=== PATIENT | female | born 1980 | race Native Hawaiian/Other Pacific Islander ===

== ENCOUNTER 2016-10-14 21:46 | Inpatient (IN) | payer BC ==
[2016-10-14] MEDS ORDERED: 0.9 % SODIUM CHLORIDE 1,000 ML BAG IV ONE (21:56)
[2016-10-14] MEDS ORDERED: ONDANSETRON HCL IV 4 MG/2 ML VIAL IV ONE (21:56)
[2016-10-14] MEDS ORDERED: HYDROMORPHONE HCL 1MG/ML **SYRINGE IVP ONE ×2 (22:03→22:25)
--- NOTE | 2016-10-14 22:04 | Emergency Department Record ---
History of Present Illness - General Chief Complaint: Abdominal Pain Stated Complaint: ABDOMINAL PAIN Time Seen by Provider: 10/14/16 21:56 Source: Patient Mode of Arrival: Ambulatory - History of Present Illness Initial Comments: The patient states that she developed LLQ AP around 7:30 p.m. while dropping her girls at a sleepover. When she got home the pain was worsened and also in her amanda-umbilical region. She became nauseated, but has not vomited, the pain increased to 10/10, and she had a non-bloody BM which also was painful. She has a history of diverticulitis in the past as well as a R ovarian cyst. She is currently on her 3rd day of her menses. She takes a BCP dailyl and has not missed any pills recently. MD Complaint: Abdominal pain Onset/Timin -: Hour(s) Location: Periumbilical Radiation: None Migration to: No migration Severity: Severe Consistency: Getting worse Improves With: Nothing Worsens With: Nothing Associated Symptoms: Denies other symptoms - Related Data LMP (females 10-50): Current Home Medications Medication Instructions Recorded Confirmed Last Taken Oral Contraceptive 1 tab PO DAILY 10/14/16 10/14/16 Unknown Allergies Allergy/AdvReac Type Severity Reaction Status Date / Time No Known Drug Allergies Allergy Verified 10/14/16 21:54 Travel Screening - Travel/Exposure Within Last 30 Days Have you traveled within the last 30 days?: No - Travel/Exposure Within Last Year Have you traveled outside the [place] in the last year?: No - Additonal Travel Details Have you been exposed to anyone with a communicable illness?: No - Travel Symptoms Symptom Screening: None Review of Systems Reviewed: No additional complaints except as noted below Constitutional: Reports: As per HPI. Denies: Chills, Fever, Malaise, Night sweats, Weakness, Weight change Eyes: Reports: As per HPI. Denies: Eye discharge, Eye pain, Photophobia, Vision change ENT: Reports: As per HPI. Denies: Congestion, Dental pain, Ear pain, Epistaxis , Hearing loss, Throat pain Respiratory: Reports: As per HPI. Denies: Cough, Dyspnea, Hemoptysis, Stridor, Wheezes Cardiovascular: Reports: As per HPI. Denies: Arrhythmia, Chest pain, Dyspnea on exertion, Edema, Murmurs, Orthopnea, Palpitations, Paroxysmal nocturnal dyspnea, Rheumatic Fever, Syncope Endocrine: Reports: As per HPI. Denies: Fatigue, Heat or cold intolerance, Polydipsia, Polyuria Gastrointestinal: Reports: As per HPI. Denies: Abdominal pain, Constipation, Diarrhea, Hematemesis, Hematochezia, Melena, Nausea, Vomiting Genitourinary: Reports: As per HPI. Denies: Abnormal menses, Discharge, Dyspareunia, Dysuria, Frequency, Hematuria, Incontinence, Retention, Urgency Musculoskeletal: Reports: As per HPI. Denies: Arthralgia, Back pain, Gout, Joint swelling, Myalgia, Neck pain Skin: Reports: As per HPI. Denies: Bruising, Change in color, Change in hair/ nails, Lesions, Pruritus, Rash Neurological: Reports: As per HPI. Denies: Abnormal gait, Confusion, Headache, Numbness, Paresthesias, Seizure, Tingling, Tremors, Vertigo, Weakness Psychiatric: Reports: As per HPI. Denies: Anxiety, Auditory hallucinations, Depression, Homicidal thoughts, Suicidal thoughts, Visual hallucinations Hematological/Lymphatic: Reports: As per HPI. Denies: Anemia, Blood Clots, Easy bleeding, Easy bruising, Swollen glands Past Medical History - SOCIAL HISTORY Smoking Status: Never smoker Alcohol Use: None Drug Use: None - RESPIRATORY Hx Respiratory Disorders: No - CARDIOVASCULAR Hx Cardio Disorders: No - NEURO Hx Neuro Disorders: No - GI Hx GI Disorders: Yes Hx Diverticulitis: Yes - Hx Genitourinary Disorders: Yes Comment:: large cyst rt ovary - ENDOCRINE Hx Endocrine Disorders: No - MUSCULOSKELETAL Hx Musculoskeletal Disorders: No - PSYCH Hx Psych Problems: No - HEMATOLOGY/ONCOLOGY Hx Hematology/Oncology Disorders: No Family Medical History Any Significant Family History?: No Physical Exam - General General Appearance: Alert, Oriented x3, Cooperative, Severe distress (crying) - Head Head exam: Normal inspection - Eye Eye exam: Normal appearance, PERRL Pupils: Normal accommodation - ENT ENT exam: Normal exam, Mucous membranes moist, Normal external ear exam, Normal orophraynx, TM's normal bilaterally Ear exam: Normal external inspection. negative: External canal tenderness Nasal Exam: Normal inspection. negative: Discharge, Sinus tenderness Mouth exam: Normal external inspection, Tongue normal Teeth exam: Normal inspection. negative: Dental caries Throat exam: Normal inspection. negative: Tonsillar erythema, Tonsillar exudate - Neck Neck exam: Normal inspection, Full ROM. negative: Tenderness - Respiratory Respiratory exam: Normal lung sounds bilaterally. negative: Respiratory distress - Cardiovascular Cardiovascular Exam: Regular rate, Normal rhythm, Normal heart sounds - GI/Abdominal GI/Abdominal exam: Soft, Normal bowel sounds, Tenderness (tender over LLQ, and periumbilical region, ). negative: Distended, Rebound, Rigid - Rectal Rectal exam: Deferred - exam: Deferred - Extremities Extremities exam: Normal inspection, Full ROM, Normal capillary refill. negative: Calf tenderness, Pedal edema, Tenderness - Back Back exam: Reports: Normal inspection, Full ROM. Denies: CVA tenderness (R), CVA tenderness (L), Muscle spasm, Rash noted, Tenderness - Neurological Neurological exam: Alert, CN II-XII intact, Normal gait, Oriented X3, Reflexes normal - Psychiatric Psychiatric exam: Normal affect, Normal mood - Skin Skin exam: Dry, Intact, Normal color, Warm Course Vital Signs 10/14/16 21:50 Temperature 98.5 F Pulse Rate [ 88 Pulse Ox Probe] Respiratory 24 Rate Blood Pressure 143/79 [Left Arm] Pulse Ox 100 - Reevaluation(s) Reevaluation #1: Patient continues to dramatically tearfully state her pain is no better. BP is 119/76. Ativan and morphine ordered. All labs normal. 10/14/16 23:05 10/15/16 00:46 Patient is more comfortable after ativan and morphine. 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 She is taking folate to treat it and is avoiding smoking. Reevaluation #2: Discussed pros and cons of admission versus going home. Patient states that she is concerned she will not have pain control as this episode is extremely painful compared to her episode 09-20-16. She prefers to stay in the hospital for pain control and then be discharged. She is 5/10 after dilaudid and morphine and ativan. 10/15/16 01:22 Medical Decision Making - Data Complexity MDM Data: Labs Ordered and/or Reviewed, X-Ray Ordered and/or Reviewed (Contrast CT Abd/Pelvis: Fat stranding in the bilateral paracolic gutters. Sigmoid and descending colonic diverticuli. In the distal descending colon there is wall thickening with adjacent fat stranding consistent with diverticulitis. There also is marked distention of the stomach. No abscess or free air seen. Per [facility]. ), Decision to Obtain Old Record (Old Abd/Pelvis Contrast CT from 09-16-16: Wall thickening, luminal narrowing, and pericolic stranding proximal sigmoid consistent withdiverticulitis. Surronding diverticulosis. No evidence for perforation or abscess formation. TRAY 7.7by 6.5 cm.), Review and Summary of Old Record Discussed - Lab Data Result diagrams: 10/14/16 22:00 10/14/16 22:00 Disposition Disposition: Admit Clinical Impression: Sigmoid diverticulitis Disposition: Still a Patient at [facility] Decision to Admit: Admit from ER Decision to Admit Date: 10/15/16 Decision to Admit Time: 01:27 Accepting Physician: Dr. Redding/ Savita Parker Time Discussed w/Accepting Physician: 06:30 Condition: (1) Good Quality - Quality Measures Quality Measures: N/A - Blood Pressure Screening Does Patient Have Any of the Following: No Blood Pressure Classification: Pre-Hypertensive BP Reading Systolic Measurement: 124 Diastolic Measurement: 83 Screening for High Blood Pressure: < Pre-Hypertensive BP, F/U Documented > [ [id number]] Pre-Hypertensive Follow-up Interventions: Follow-up with rescreen every year.
[2016-10-14 22:08] LABS: BASO % 0.2 % (0-6); EOS % 1.7 % (0-6); GRAN % 72.9 % (47-80); HEMATOCRIT 42.6 % (35.0-47.0); LYMPH % 20.6 % (16-45); MEAN CELL VOLUME 84.9 fl (81-97); MEAN CORPUSCULAR HEMOGLOBIN 29.9 pg (27-33); MEAN CORPUSCULAR HGB CONC 35.2 g/dl (32-36); MEAN PLATELET VOLUME 10.6 fl (7.4-10.4); MONO % 4.6 % (0-9); PLATELET COUNT 234 K/uL (130-400); RED BLOOD COUNT 5.02 M/uL (3.80-5.40); WHITE BLOOD COUNT W/O DIFF 8.9 K/uL (4.2-12.2)
[2016-10-14 22:16] LABS: ALBUMIN 4.2 gm/dL (3.5-5.0); ALKALINE PHOSPHATASE 77 U/L (38-126); ALT/SGPT 41 U/L (9-52); ANION GAP 9.3 (7-16); AST/SGOT 22 U/L (14-36); BILIRUBIN,TOTAL 0.55 mg/dL (0.2-1.3); BLOOD UREA NITROGEN 14 mg/dL (7-17); CARBON DIOXIDE 23.7 mmol/L (22-30); CREATININE 0.9 mg/dL (0.52-1.04); EST GLOMERULAR FILTRATION RATE > 60 ml/min; GLUCOSE,RANDOM 111 mg/dL (70-110); LIPASE 111 U/L (23-300); TOTAL PROTEIN 7.3 gm/dL (6.3-8.2)
[2016-10-14] MEDS ORDERED: MORPHINE SULFATE 5 MG/ML PFS IVP ONE (23:05)
[2016-10-14] MEDS ORDERED: LORAZEPAM 2 MG/ML VIAL IV ONE (23:05)
[2016-10-14 23:28] LABS: URINE APPEARANCE CLEAR; URINE BILIRUBIN NEGATIVE (NEGATIVE); URINE BLOOD SMALL (NEGATIVE); URINE COLOR YELLOW; URINE GLUCOSE (UA) NEGATIVE (NEGATIVE); URINE KETONE NEGATIVE (NEGATIVE); URINE LEUKOCYTE ESTERASE NEGATIVE (NEGATIVE); URINE NITRITE NEGATIVE (NEGATIVE); URINE PROTEIN NEGATIVE (NEGATIVE); URINE UROBILINOGEN 0.2 E.U./dL (0.20 - 1.00)
[2016-10-14 23:31] LABS: HCG,QUALITATIVE URINE NEGATIVE (NEGATIVE); URINE BACTERIA NONE SEEN; URINE EPITHELIAL CELLS 0 - 2 (FEW); URINE RBC 0 - 2 (NONE SEEN); URINE WBC 0 - 2 (0-2/hpf)
[2016-10-15] MEDS ORDERED: 0.9 % SODIUM CHLORIDE 1,000 ML BAG IV ONE (00:47)
[2016-10-15] MEDS ORDERED: CIPROFLOXACIN LACTATE/D5W 400 MG/200 ML BAG IVPB ONE (01:19)
[2016-10-15] MEDS ORDERED: METRONIDAZOLE IVPB 500 MG/100 ML BAG IVPB ONE (01:22)
[2016-10-15] MEDS ORDERED: HYDROMORPHONE HCL 1MG/ML **SYRINGE IVP ONE (01:24)
[2016-10-15] MEDS ORDERED: ONDANSETRON HCL IV 4 MG/2 ML VIAL IVP PRN (02:17)
[2016-10-15] MEDS ORDERED: CIPROFLOXACIN LACTATE/D5W 400 MG/200 ML BAG IVPB SCH (02:17)
[2016-10-15] MEDS ORDERED: METRONIDAZOLE IVPB 500 MG/100 ML BAG IVPB SCH (02:17)
[2016-10-15] MEDS ORDERED: MORPHINE SULFATE 5 MG/ML PFS IVP PRN (02:17)
[2016-10-15] MEDS: 0.9 % SODIUM CHLORIDE 1000ML 1,000 ML IV PRN ×2 (03:18→15:39)
[2016-10-15 07:01] LABS: HEMOGLOBIN 12.8 gm/dl (11.6-16.0); MEAN CORPUSCULAR HEMOGLOBIN 29.8 pg (27-33); MEAN CORPUSCULAR HGB CONC 34.6 g/dl (32-36); MEAN PLATELET VOLUME 11.1 fl (7.4-10.4); PLATELET COUNT 191 K/uL (130-400); RED CELL DISTRIBUTION WIDTH 12.8 % (11.5-14.5)
[2016-10-15 07:13] LABS: PLATELET ESTIMATE NORMAL (NORMAL)
[2016-10-15 07:15] LABS: ANION GAP 7.3 (7-16); BLOOD UREA NITROGEN 9 mg/dL (7-17); CARBON DIOXIDE 22.7 mmol/L (22-30); CREATININE 0.7 mg/dL (0.52-1.04); EST GLOMERULAR FILTRATION RATE > 60 ml/min; GLUCOSE,RANDOM 120 mg/dL (70-110)
[2016-10-15] MEDS: HYDROMORPHONE HCL 1MG/ML **SYRINGE IVP PRN ×4 (08:37→22:18)
[2016-10-15] MEDS: CONTRACEPTIVE PO SCH (10:08)
[2016-10-15 10:11] LABS: HEMATOCRIT 35.4 % (35.0-47.0); HEMOGLOBIN 12.1 gm/dl (11.6-16.0); MEAN CELL VOLUME 86.8 fl (81-97); MEAN CORPUSCULAR HEMOGLOBIN 29.7 pg (27-33); MEAN CORPUSCULAR HGB CONC 34.2 g/dl (32-36); MEAN PLATELET VOLUME 10.6 fl (7.4-10.4); PLATELET COUNT 198 K/uL (130-400); RED BLOOD COUNT 4.08 M/uL (3.80-5.40); RED CELL DISTRIBUTION WIDTH 12.8 % (11.5-14.5); WHITE BLOOD COUNT W/O DIFF 19.1 K/uL (4.2-12.2)
[2016-10-15] MEDS: CIPROFLOXACIN LACTATE/D5W 400 MG/200 ML BAG IVPB SCH ×2 (10:16→22:18)
[2016-10-15] MEDS: ENOXAPARIN 40 MG/0.4 ML SYR SQ SCH (10:21)
[2016-10-15] MEDS: MORPHINE SULFATE 5 MG/ML PFS IVP PRN ×3 (10:26→20:13)
[2016-10-15 10:27] LABS: ALB/GLOB RATIO 1.2 (1.1-1.8); ALBUMIN 3.1 gm/dL (3.5-5.0); ALKALINE PHOSPHATASE 45 U/L (38-126); ALT/SGPT 38 U/L (9-52); ANION GAP 4.9 (7-16); AST/SGOT 18 U/L (14-36); BILIRUBIN,TOTAL 1.29 mg/dL (0.2-1.3); BLOOD UREA NITROGEN 8 mg/dL (7-17); CARBON DIOXIDE 22.1 mmol/L (22-30); CREATININE 0.7 mg/dL (0.52-1.04); EST GLOMERULAR FILTRATION RATE > 60 ml/min; GLUCOSE,RANDOM 117 mg/dL (70-110); PLATELET ESTIMATE NORMAL (NORMAL); TOTAL PROTEIN 5.6 gm/dL (6.3-8.2)
--- NOTE | 2016-10-15 11:39 | History & Physical ---
History of Present Illness - Date of Service Date of Service for History & Physical: 10/15/16 - History of Present Illness Admitting Diagnosis: Acute sigmoid diverticulitis History of Present Illness: 35 y/o female with CC periumbilical pain admitted for diverticulitis. Past medical history includes diverticulitis, large right ovarian cyst. Prior to arrival had periumbilical pain beginning night. She rated pain about 5/10. Laid down and was able to sleep that night. The next morning woke with the same pain associated with a migraine, diarrhea and nausea. Denies fever or vomiting, bloody stools. Saturday late afternoon had dinner and had abrupt worsening of periumbilical pain. Pain was unlike any previous abdominal pain associated with diverticulitis. Had painful BM. Was treated for diverticulitis at [facility] July 2016 and took all antibiotics as ordered. Reports for the past 3 years has had 5-6 episodes of diverticulitis, has been following with [facility] with a colonoscopy scheduled next week. She is due to see surgeon after that scope for partial colectomy due to frequent diverticulitis. Does have known right ovarian cyst and is currently on day 4 of menses. Takes OBC. 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 While in the ED VSS but was slightly tachycardic. CBC normal with no elevation of WBC. CMP normal. U/A with small blood. CT abdomen/pelvis showed fat stranding in the bilateral paracolic gutters, Sigmoid and descending colonic diverticuli. Distal descending colon with wall thickening with adjacent fat stranding consistent with diverticulitis. Marked distention of stomach. Pain was significant, was not controlled with Dilaudid. Was given MS with Ativan with a little better control. Flagyl and Cipro IV, IV hydration initiated in the ED. Admitted for continued IV antibiotics and pain control 10/15/16- laying in bed, appears very uncomfortable. Abdominal guarding. Has only tolerated clear liquids. Poor appetite. No further diarrhea. Denies nausea or vomiting. Travel Screening - Travel/Exposure Within Last 30 Days Have you traveled within the last 30 days?: No - Travel/Exposure Within Last Year Have you traveled outside the [place] in the last year?: No - Additonal Travel Details Have you been exposed to anyone with a communicable illness?: No - Travel Symptoms Symptom Screening: None Review of Systems Constitutional: Reports: As per HPI. Denies: Chills, Fever, Malaise, Night sweats, Weakness, Weight change Eyes: Reports: As per HPI. Denies: Eye discharge, Eye pain, Photophobia, Vision change ENT: Reports: As per HPI. Denies: Congestion, Dental pain, Ear pain, Epistaxis , Hearing loss, Throat pain Respiratory: Reports: As per HPI. Denies: Cough, Dyspnea, Hemoptysis, Stridor, Wheezes Cardiovascular: Reports: As per HPI. Denies: Arrhythmia, Chest pain, Dyspnea on exertion, Edema, Murmurs, Orthopnea, Palpitations, Paroxysmal nocturnal dyspnea, Rheumatic Fever, Syncope Endocrine: Reports: As per HPI. Denies: Fatigue, Heat or cold intolerance, Polydipsia, Polyuria Gastrointestinal: Reports: As per HPI. Denies: Abdominal pain, Constipation, Diarrhea, Hematemesis, Hematochezia, Melena, Nausea, Vomiting Genitourinary: Reports: As per HPI. Denies: Abnormal menses, Discharge, Dyspareunia, Dysuria, Frequency, Hematuria, Incontinence, Retention, Urgency Musculoskeletal: Reports: As per HPI. Denies: Arthralgia, Back pain, Gout, Joint swelling, Myalgia, Neck pain Skin: Reports: As per HPI. Denies: Bruising, Change in color, Change in hair/ nails, Lesions, Pruritus, Rash Neurological: Reports: As per HPI. Denies: Abnormal gait, Confusion, Headache, Numbness, Paresthesias, Seizure, Tingling, Tremors, Vertigo, Weakness Psychiatric: Reports: As per HPI. Denies: Anxiety, Auditory hallucinations, Depression, Homicidal thoughts, Suicidal thoughts, Visual hallucinations Hematological/Lymphatic: Reports: As per HPI. Denies: Anemia, Blood Clots, Easy bleeding, Easy bruising, Swollen glands Past Medical History - SOCIAL HISTORY Smoking Status: Never smoker Alcohol Use: Rare Drug Use: None - RESPIRATORY Hx Respiratory Disorders: No - CARDIOVASCULAR Hx Cardio Disorders: No - NEURO Hx Neuro Disorders: No - GI Hx GI Disorders: Yes Hx Diverticulitis: Yes - Hx Genitourinary Disorders: Yes Comment:: large cyst rt ovary - ENDOCRINE Hx Endocrine Disorders: No - MUSCULOSKELETAL Hx Musculoskeletal Disorders: Yes Hx Arthritis: Yes - PSYCH Hx Psych Problems: No - HEMATOLOGY/ONCOLOGY Hx Hematology/Oncology Disorders: No Family Medical History Any Significant Family History?: No Hx Cancer: Grandparents Hx Dementia: Grandparents Hx Heart Disease: Mother Hx Stroke: Grandparents H&P Meds/Allergies - Allergies Allergies: Allergies Allergy/AdvReac Type Severity Reaction Status Date / Time No Known Drug Allergies Allergy Verified 10/14/16 21:54 - Home Medications Home Medications Medication Instructions Recorded Confirmed Last Taken Oral Contraceptive 1 tab PO DAILY 10/14/16 10/14/16 Unknown - Active Medications Active Medications: Current Medications Enoxaparin Sodium (Lovenox) 40 mg SQ DAILY [facility] Last Admin: 10/15/16 10:21 Dose: 40 mg Hydromorphone HCl (Dilaudid) 0.5 mg IVP Q4HR PRN PRN Reason: Pain - General Last Admin: 10/15/16 08:37 Dose: 0.5 mg Sodium Chloride () 1,000 mls @ 125 mls/hr IV .Q8H PRN PRN Reason: LARGE VOLUME IV Last Admin: 10/15/16 03:18 Dose: 125 mls/hr Ciprofloxacin Lactate (Cipro) 400 mg in 200 mls @ 200 mls/hr IVPB Q12HR GUICHO Stop: 10/20/16 02:18 Last Admin: 10/15/16 10:16 Dose: 200 mls/hr Metronidazole/Sodium Chloride (Flagyl) 500 mg in 100 mls @ 100 mls/hr IVPB Q8H GUICHO Stop: 10/20/16 12:01 Morphine Sulfate (Morphine Sulfate) 5 mg IVP Q4HR PRN PRN Reason: Abdominal Pain Stop: 10/22/16 10:09 Last Admin: 10/15/16 10:26 Dose: 5 mg Non-Formulary Medication (Oral Contraceptive) 1 tab PO DAILY [facility] Last Admin: 10/15/16 10:08 Dose: Not Given Ondansetron HCl (Zofran) 4 mg IVP Q4H PRN PRN Reason: NAUSEA Physical Exam - Vital Signs Vital Signs: Vital Signs - Last 24 Hrs Temp Pulse Resp BP Pulse Ox 10/15/16 09:00 20 10/15/16 02:17 99.2 F 110 H 20 124/79 99 - General General Appearance: Alert, Oriented x3, Cooperative, Moderate distress ( abdominal pain) - Head Head exam: Normal inspection - Eye Eye exam: Normal appearance, PERRL Pupils: Normal accommodation - ENT ENT exam: Normal exam, Mucous membranes moist, Normal external ear exam, Normal orophraynx, TM's normal bilaterally Ear exam: Normal external inspection. negative: External canal tenderness Nasal Exam: Normal inspection. negative: Discharge, Sinus tenderness Mouth exam: Normal external inspection, Tongue normal Teeth exam: Normal inspection. negative: Dental caries Throat exam: Normal inspection. negative: Tonsillar erythema, Tonsillar exudate - Neck Neck exam: Normal inspection, Full ROM. negative: Tenderness - Respiratory Respiratory exam: Normal lung sounds bilaterally (is not taking deep breaths due to pain). negative: Respiratory distress - Cardiovascular Cardiovascular Exam: Regular rate, Normal rhythm, Normal heart sounds - GI/Abdominal GI/Abdominal exam: Soft, Normal bowel sounds, Tenderness (tender over LLQ, and periumbilical region, ). negative: Distended, Rebound, Rigid - Rectal Rectal exam: Deferred - exam: Deferred - Extremities Extremities exam: Normal inspection, Full ROM, Normal capillary refill. negative: Calf tenderness, Pedal edema, Tenderness - Back Back exam: Reports: Normal inspection, Full ROM. Denies: CVA tenderness (R), CVA tenderness (L), Muscle spasm, Rash noted, Tenderness - Neurological Neurological exam: Alert, CN II-XII intact, Normal gait, Oriented X3, Reflexes normal - Psychiatric Psychiatric exam: Normal affect, Normal mood - Skin Skin exam: Dry, Intact, Normal color, Warm Results - Labs Result Diagrams: 10/15/16 09:59 10/15/16 09:59 Labs Last 24 Hours: Laboratory Results - last 24 hr 10/15/16 10/15/16 10/15/16 06:57 06:57 09:59 WBC 19.0 H 19.1 H RBC 4.30 4.08 Hgb 12.8 12.1 Hct 37.0 35.4 MCV 86.0 86.8 MCH 29.8 29.7 MCHC 34.6 34.2 RDW 12.8 12.8 Plt Count 191 198 MPV 11.1 H 10.6 H Neutrophils % 91.0 H 79.0 Band Neutrophils % 3.0 Eosinophils % Not Reportable Not Reportable Basophils % Not Reportable Not Reportable Lymphocytes 4.0 L 18.0 Monocytes 2.0 3.0 Platelet Estimate Normal Normal RBC Morphology Normal Normal Sodium 135 L Potassium 3.8 Chloride 105 Carbon Dioxide 22.7 Anion Gap 7.3 BUN 9 Creatinine 0.7 Estimated GFR > 60 Random Glucose 120 H Calcium 8.0 L Total Bilirubin AST ALT Alkaline Phosphatase Total Protein Albumin Globulin Albumin/Globulin Ratio 10/15/16 09:59 WBC RBC Hgb Hct MCV MCH MCHC RDW Plt Count MPV Neutrophils % Band Neutrophils % Eosinophils % Basophils % Lymphocytes Monocytes Platelet Estimate RBC Morphology Sodium 134 L Potassium 3.5 Chloride 107 Carbon Dioxide 22.1 Anion Gap 4.9 L BUN 8 Creatinine 0.7 Estimated GFR > 60 Random Glucose 117 H Calcium 7.7 L Total Bilirubin 1.29 AST 18 ALT 38 Alkaline Phosphatase 45 Total Protein 5.6 L Albumin 3.1 L Globulin 2.5 Albumin/Globulin Ratio 1.2 - Imaging and Cardiology CT scan - abdomen Status: Report reviewed (diverticulitis) VTE H&P Assessment - Risk for VTE Risk for VTE: Yes Risk Level: Moderate Risk Assessment Date: 10/15/16 Risk Assessment Time: 13:28 VTE Orders Placed or Will Be Placed: Yes Plan - Inpatient Certification Inpatient Certification: Admit to inpatient care: Based on my medical assessment, after consideration of patient's risk factors (age, co-morbidities and patient presenting symptoms and acuity), I expect that this patient will remain in the hospital greater than or equal to two midnights and that the services needed warrant inpatient care because: Patient Risk Factors: [] Estimated length of stay: [] The patient may reasonably be expected to be discharged or transferred to a hospital within 96 hours after admission to [facility]. Services needed: [] Post hospital care (if known): [] I certify that my determination is in accordance with my understanding of Medicare requirements for reasonable and necessary inpatient services. - Detailed Diagnosis and Plan (1) Sigmoid diverticulitis Current Visit: Yes Status: Acute Base Code: K57.32 - DVTRCLI OF LG INT W/O PERFORATION OR ABSCESS W/O BLEEDING Comment: 10/15/16- 35 y/o female admitted for recurrent diverticulitis. Follows with [facility] in the community with plan on repeat colonoscopy next week in preparation to see general surgeon for partial colectomy/sigmoidectomy. WBC elevated from normal to 19.0 today, Na 135. U/A with small bld in ED but is currently menstruating. Tachycardic likely 2nd pain. - Cipro 400mg BID, Flagyl 500mg Q 8 hrs - antiemetics - Dilaudid/morphine sulfate PRN ( MS increased to 5mg q 4 hrs PRN) - does not feel she can tolerated PO pain medications yet - clear liquid diet, advance as tolerated - IS - urine C&S pending - CBC/CMP in am (2) DVT prophylaxis Current Visit: Yes Status: Acute Base Code: [id number] - Comment: 10/15/16- Lovenox 40mg QD (3) Full code status Current Visit: Yes Status: Acute Base Code: Z78.9 - OTHER SPECIFIED HEALTH STATUS Comment: 10/15/16- will remain full code during this hospitalization
--- NOTE | 2016-10-15 12:38 | CT SCAN REPORT ---
EXAM: CT OF THE ABDOMEN AND PELVIS WITH CONTRAST HISTORY: STOMACH PAIN. TECHNIQUE: Sequential axial images were obtained from the diaphragms through the ischiorectal fossa after oral and intravenous administration of 100 ml of Omnipaque 300 contrast material. FINDINGS: The visualized lung bases appear normal. There is gastric distention. The small bowel appears normal. There is a descending and sigmoid colon diverticulosis. There is a focal area of wall thickening and adjacent inflammatory change at the junction of the descending colon and sigmoid colon. Findings are suggestive of a nonspecific colitis likely diverticulitis. The uterus demonstrates small fibroids within the myometrium. There are bilateral ovarian follicles. There is free fluid in the cul-de-sac likely physiologic. The appendix is visualized and appears normal. The osseous structures are normal. IMPRESSION: 1. FOCAL AREA OF WALL THICKENING, DIVERTICULAR DISEASE, AND ADJACENT INFLAMMATORY CHANGE AT THE JUNCTION OF THE DESCENDING AND SIGMOID COLON. FINDINGS ARE SUGGESTIVE OF A NONSPECIFIC COLITIS/DIVERTICULITIS. 2. SMALL AMOUNT OF FREE FLUID IN THE PELVIS. 3. GASTRIC DISTENTION. 4. THE APPENDIX IS VISUALIZED AND APPEARS NORMAL. JOB NUMBER: [id number] [facility]
[2016-10-15] MEDS: METRONIDAZOLE IVPB 500 MG/100 ML BAG IVPB SCH ×2 (13:07→20:12)
[2016-10-16] MEDS: MORPHINE SULFATE 5 MG/ML PFS IVP PRN ×5 (01:03→22:04)
[2016-10-16] MEDS: 0.9 % SODIUM CHLORIDE 1000ML 1,000 ML IV PRN ×3 (03:06→13:31)
[2016-10-16] MEDS: METRONIDAZOLE IVPB 500 MG/100 ML BAG IVPB SCH ×3 (04:50→20:54)
[2016-10-16] MEDS: HYDROMORPHONE HCL 1MG/ML **SYRINGE IVP PRN ×3 (06:45→18:21)
--- NOTE | 2016-10-16 07:56 | Physician Progress Note ---
Subjective - Date Date of Physician Progress Note: 10/16/16 - Subjective Subjective Comment: 10/16/16-patient reports stable pain in the amanda-umbilical and lower abdomen. States the morphine and diluadid seem to be keeping pain tolerable at a 5. Says she still gets recurrence of the sharp pain when the pain medication is wearing off. Has been tolerating clear liquids but no real appetite. no nausea or vomiting. Had one BM saturday night before she came in to the ED that was loose but none since. currently on her menses. No fevers, chills, or worsening of pain Objective - Vital Signs Vital Signs: Vital Signs - Last 24 Hrs Temp Pulse Resp BP BP Pulse Ox 10/16/16 01:15 99.6 F 104 H 16 113/72 95 10/15/16 18:00 107 H 119/83 10/15/16 10:17 99 F 119 H 16 109/67 95 10/15/16 09:00 20 - General General Appearance: Alert, Oriented x3, Cooperative, No acute distress - Head Head exam: Normal inspection - Eye Eye exam: Normal appearance, PERRL Pupils: Normal accommodation - ENT ENT exam: Normal exam, Mucous membranes moist, Normal external ear exam, Normal orophraynx, TM's normal bilaterally Ear exam: Normal external inspection. negative: External canal tenderness Nasal Exam: Normal inspection. negative: Discharge, Sinus tenderness Mouth exam: Normal external inspection, Tongue normal Teeth exam: Normal inspection. negative: Dental caries Throat exam: Normal inspection. negative: Tonsillar erythema, Tonsillar exudate - Neck Neck exam: Normal inspection, Full ROM. negative: Tenderness - Respiratory Respiratory exam: Normal lung sounds bilaterally. negative: Accessory muscle use, Respiratory distress - Cardiovascular Cardiovascular Exam: Normal rhythm, Normal heart sounds, Tachycardia - GI/Abdominal GI/Abdominal exam: Soft, Normal bowel sounds, Tenderness (tender over LLQ, and periumbilical region, ). negative: Distended, Rebound, Rigid - Rectal Rectal exam: Deferred - exam: Deferred - Extremities Extremities exam: Normal inspection, Full ROM, Normal capillary refill. negative: Calf tenderness, Pedal edema, Tenderness - Back Back exam: Reports: Normal inspection, Full ROM. Denies: CVA tenderness (R), CVA tenderness (L), Muscle spasm, Rash noted, Tenderness - Neurological Neurological exam: Alert, CN II-XII intact, Normal gait, Oriented X3, Reflexes normal - Psychiatric Psychiatric exam: Normal affect, Normal mood - Skin Skin exam: Dry, Intact, Normal color, Warm Assessment and Plan - Inpatient Certification Inpatient Certification: risk factors: age, diverticulitis, estimated length of stay: 48-72H services: IV antibiotics, IV pain medication 10/16/16 11:12 - Assessment and Plan (1) Sigmoid diverticulitis Current Visit: Yes Status: Acute Base Code: K57.32 - DVTRCLI OF LG INT W/O PERFORATION OR ABSCESS W/O BLEEDING Comment: 10/16/16- stable. CT scan showed a focal area of wall thickening, diverticular disease and adjacent inflammation. WBC count up to 19 yesterday and improving to 13.4 this morning following IV antibiotics. [facility]s [facility] community with colonoscopy scheduled next week to plan for general surgeon for partial colectomy/ sigmoidectomy. will need to reschedule that with [facility]. Pain improved in severity but continues to have sharp abdominal pain as medication wears off. tolerating very small amounts of water. - Cipro 400mg IV BID, Flagyl 500mg IV Q 8 hrs. May consider transitioning to zosyn if no continued improvement. -continue zofran 4mg iv prn nausea - Dilaudid 5mg IV q4H - clear liquid diet, advance as tolerated - IS - urine C&S pending - CBC/CMP in am -vitals q8H (2) Full code status Current Visit: Yes Status: Acute Base Code: Z78.9 - OTHER SPECIFIED HEALTH STATUS Comment: 10/16/16- will remain full code during this hospitalization (3) DVT prophylaxis Current Visit: Yes Status: Acute Base Code: [id number] - Comment: 10/16/16- Lovenox 40mg QD Results - Labs Result Diagrams: 10/16/16 08:12 10/16/16 08:12 Labs Last 24 Hours: Laboratory Results - last 24 hr 10/15/16 10/15/16 09:59 09:59 WBC 19.1 H RBC 4.08 Hgb 12.1 Hct 35.4 MCV 86.8 MCH 29.7 MCHC 34.2 RDW 12.8 Plt Count 198 MPV 10.6 H Neutrophils % 79.0 Eosinophils % Not Reportable Basophils % Not Reportable Lymphocytes 18.0 Monocytes 3.0 Platelet Estimate Normal RBC Morphology Normal Sodium 134 L Potassium 3.5 Chloride 107 Carbon Dioxide 22.1 Anion Gap 4.9 L BUN 8 Creatinine 0.7 Estimated GFR > 60 Random Glucose 117 H Calcium 7.7 L Total Bilirubin 1.29 AST 18 ALT 38 Alkaline Phosphatase 45 Total Protein 5.6 L Albumin 3.1 L Globulin 2.5 Albumin/Globulin Ratio 1.2 DVT/PE Assessment - Risk for VTE Risk for VTE: No Risk Level: Moderate Risk Assessment Date: 10/15/16 Risk Assessment Time: 13:28 VTE Orders Placed or Will Be Placed: Yes - Active Medicaitons Current Medications: Current Medications Enoxaparin Sodium (Lovenox) 40 mg SQ DAILY [facility] Last Admin: 10/15/16 10:21 Dose: 40 mg Hydromorphone HCl (Dilaudid) 0.5 mg IVP Q4HR PRN PRN Reason: Pain - General Last Admin: 10/16/16 06:45 Dose: 0.5 mg Sodium Chloride () 1,000 mls @ 125 mls/hr IV .Q8H PRN PRN Reason: LARGE VOLUME IV Last Admin: 10/16/16 03:06 Dose: 125 mls/hr Ciprofloxacin Lactate (Cipro) 400 mg in 200 mls @ 200 mls/hr IVPB Q12HR [facility] Stop: 10/20/16 02:18 Last Infusion: 10/15/16 23:24 Dose: Infused Metronidazole/Sodium Chloride (Flagyl) 500 mg in 100 mls @ 100 mls/hr IVPB Q8H [facility] Stop: 10/20/16 12:01 Last Admin: 10/16/16 04:50 Dose: 100 mls/hr Morphine Sulfate (Morphine Sulfate) 5 mg IVP Q4HR PRN PRN Reason: Abdominal Pain Stop: 10/22/16 10:09 Last Admin: 10/16/16 04:55 Dose: 5 mg Non-Formulary Medication (Oral Contraceptive) 1 tab PO DAILY [facility] Last Admin: 10/15/16 10:08 Dose: Not Given Ondansetron HCl (Zofran) 4 mg IVP Q4H PRN PRN Reason: NAUSEA AMI Plan - Labs Result Diagrams: 10/16/16 08:12 10/16/16 08:12
[2016-10-16 08:26] LABS: HEMATOCRIT 33.5 % (35.0-47.0); HEMOGLOBIN 11.5 gm/dl (11.6-16.0); MEAN CELL VOLUME 87.9 fl (81-97); MEAN CORPUSCULAR HGB CONC 34.3 g/dl (32-36); MEAN PLATELET VOLUME 10.5 fl (7.4-10.4); PLATELET COUNT 181 K/uL (130-400); RED BLOOD COUNT 3.81 M/uL (3.80-5.40); RED CELL DISTRIBUTION WIDTH 12.7 % (11.5-14.5); WHITE BLOOD COUNT W/O DIFF 13.4 K/uL (4.2-12.2)
[2016-10-16 08:27] LABS: MEAN CORPUSCULAR HEMOGLOBIN 30.1 pg (27-33)
[2016-10-16 08:30] LABS: ALB/GLOB RATIO 1.1 (1.1-1.8); ALKALINE PHOSPHATASE 49 U/L (38-126); ALT/SGPT 42 U/L (9-52); ANION GAP 5.9 (7-16); AST/SGOT 17 U/L (14-36); BILIRUBIN,TOTAL 1.27 mg/dL (0.2-1.3); BLOOD UREA NITROGEN 6 mg/dL (7-17); CARBON DIOXIDE 23.1 mmol/L (22-30); CREATININE 0.7 mg/dL (0.52-1.04); EST GLOMERULAR FILTRATION RATE > 60 ml/min; GLUCOSE,RANDOM 108 mg/dL (70-110); TOTAL PROTEIN 5.8 gm/dL (6.3-8.2)
[2016-10-16 08:47] LABS: PLATELET ESTIMATE NORMAL (NORMAL)
[2016-10-16] MEDS: CIPROFLOXACIN LACTATE/D5W 400 MG/200 ML BAG IVPB SCH ×2 (10:48→22:20)
[2016-10-16] MEDS: ENOXAPARIN 40 MG/0.4 ML SYR SQ SCH (10:48)
[2016-10-16] MEDS: CONTRACEPTIVE PO SCH ×2 (12:24→22:22)
[2016-10-17] MEDS: 0.9 % SODIUM CHLORIDE 1000ML 1,000 ML IV PRN ×3 (02:12→21:43)
[2016-10-17] MEDS: MORPHINE SULFATE 5 MG/ML PFS IVP PRN (03:29)
[2016-10-17] MEDS: METRONIDAZOLE IVPB 500 MG/100 ML BAG IVPB SCH (03:36)
[2016-10-17 08:53] LABS: HEMOGLOBIN 10.9 gm/dl (11.6-16.0); MEAN CELL VOLUME 87.2 fl (81-97); MEAN CORPUSCULAR HEMOGLOBIN 29.7 pg (27-33); MEAN CORPUSCULAR HGB CONC 34.1 g/dl (32-36); MEAN PLATELET VOLUME 10.1 fl (7.4-10.4); PLATELET COUNT 172 K/uL (130-400); RED BLOOD COUNT 3.67 M/uL (3.80-5.40); RED CELL DISTRIBUTION WIDTH 12.7 % (11.5-14.5); WHITE BLOOD COUNT W/O DIFF 10.1 K/uL (4.2-12.2)
[2016-10-17 09:04] LABS: ALB/GLOB RATIO 0.9 (1.1-1.8); ALBUMIN 2.8 gm/dL (3.5-5.0); ALKALINE PHOSPHATASE 50 U/L (38-126); ALT/SGPT 36 U/L (9-52); ANION GAP 4.2 (7-16); AST/SGOT 12 U/L (14-36); BILIRUBIN,TOTAL 0.97 mg/dL (0.2-1.3); BLOOD UREA NITROGEN 4 mg/dL (7-17); CARBON DIOXIDE 24.8 mmol/L (22-30); CREATININE 0.6 mg/dL (0.52-1.04); EST GLOMERULAR FILTRATION RATE > 60 ml/min; GLUCOSE,RANDOM 102 mg/dL (70-110); TOTAL PROTEIN 5.8 gm/dL (6.3-8.2)
[2016-10-17] MEDS: ENOXAPARIN 40 MG/0.4 ML SYR SQ SCH (09:59)
[2016-10-17] MEDS: CIPROFLOXACIN HCL 500 MG TABLET PO SCH ×2 (09:59→22:40)
[2016-10-17] MEDS: HYDROCODONE/APAP 10/325 TABLET PO PRN ×3 (09:59→18:34)
--- NOTE | 2016-10-17 10:59 | Physician Progress Note ---
Subjective - Date Date of Physician Progress Note: 10/17/16 - Subjective Subjective Comment: 10/17/16- Patient states she is feeling much better today. she says the sharp intermittent pain she was having in the periumbilical and llq has changed in to more of a dull ache, similar to previous diverticulitis pain. She has been tolerating more clear liquids including juice without any nausea or worsening pain. no BM today. Denies fevers, chills, shortness of breath. Objective - Vital Signs Vital Signs: Vital Signs - Last 24 Hrs Temp Pulse Resp BP Pulse Ox 10/17/16 07:10 98.1 F 100 H 16 105/75 96 10/17/16 00:32 98.2 F 99 H 16 110/70 97 10/16/16 20:06 16 10/16/16 18:00 98.8 F 120 H 16 108/72 95 - General General Appearance: Alert, Oriented x3, Cooperative, No acute distress - Head Head exam: Normal inspection - Eye Eye exam: Normal appearance, PERRL Pupils: Normal accommodation - ENT ENT exam: Normal exam, Mucous membranes moist, Normal external ear exam, Normal orophraynx, TM's normal bilaterally Ear exam: Normal external inspection. negative: External canal tenderness Nasal Exam: Normal inspection. negative: Discharge, Sinus tenderness Mouth exam: Normal external inspection, Tongue normal Teeth exam: Normal inspection. negative: Dental caries Throat exam: Normal inspection. negative: Tonsillar erythema, Tonsillar exudate - Neck Neck exam: Normal inspection, Full ROM. negative: Tenderness - Respiratory Respiratory exam: Normal lung sounds bilaterally. negative: Accessory muscle use, Respiratory distress - Cardiovascular Cardiovascular Exam: Normal rhythm, Normal heart sounds, Tachycardia - GI/Abdominal GI/Abdominal exam: Soft, Normal bowel sounds, Tenderness (tender over LLQ, and periumbilical region, ). negative: Distended, Rebound, Rigid - Rectal Rectal exam: Deferred - exam: Deferred - Extremities Extremities exam: Normal inspection, Full ROM, Normal capillary refill. negative: Calf tenderness, Pedal edema, Tenderness - Back Back exam: Reports: Normal inspection, Full ROM. Denies: CVA tenderness (R), CVA tenderness (L), Muscle spasm, Rash noted, Tenderness - Neurological Neurological exam: Alert, CN II-XII intact, Normal gait, Oriented X3, Reflexes normal - Psychiatric Psychiatric exam: Normal affect, Normal mood - Skin Skin exam: Dry, Intact, Normal color, Warm Assessment and Plan - Assessment and Plan (1) Sigmoid diverticulitis Current Visit: Yes Status: Acute Base Code: K57.32 - DVTRCLI OF LG INT W/O PERFORATION OR ABSCESS W/O BLEEDING Comment: 10/17/16- stable. CT scan showed a focal area of wall thickening, diverticular disease and adjacent inflammation. WBC count down to normal at 10.1 Follows with [facility] community with colonoscopy scheduled next week to plan for general surgeon for partial colectomy/sigmoidectomy. will need to reschedule that with [facility]. Pain continues to improve. tolerating clear liquids now. - will transition to cipro 500mg po q12H and flagyl 500mg po q8H -continue to advance diet as tolerating -continue zofran 4mg iv prn nausea - transition to norco 10/325mg po q4H prn moderate to severe pain - CBC/CMP in am -vitals q8H (2) Full code status Current Visit: Yes Status: Acute Base Code: Z78.9 - OTHER SPECIFIED HEALTH STATUS Comment: 10/17/16- will remain full code during this hospitalization (3) DVT prophylaxis Current Visit: Yes Status: Acute Base Code: [id number] - Comment: 10/17/16- Lovenox 40mg QD Results - Labs Result Diagrams: 10/17/16 08:46 10/17/16 08:46 Labs Last 24 Hours: Laboratory Results - last 24 hr 10/17/16 10/17/16 08:46 08:46 WBC 10.1 RBC 3.67 L Hgb 10.9 L Hct 32.0 L MCV 87.2 MCH 29.7 MCHC 34.1 RDW 12.7 Plt Count 172 MPV 10.1 Neutrophils % 90.0 H Eosinophils % Not Reportable Basophils % Not Reportable Lymphocytes 5.0 L Monocytes 4.0 Eosinophil Count 1.0 Sodium 134 L Potassium 3.2 L Chloride 105 Carbon Dioxide 24.8 Anion Gap 4.2 L BUN 4 L Creatinine 0.6 Estimated GFR > 60 Random Glucose 102 Calcium 7.8 L Total Bilirubin 0.97 AST 12 L ALT 36 Alkaline Phosphatase 50 Total Protein 5.8 L Albumin 2.8 L Globulin 3.0 Albumin/Globulin Ratio 0.9 L DVT/PE Assessment - Risk for VTE Risk for VTE: No Risk Level: Moderate Risk Assessment Date: 10/15/16 Risk Assessment Time: 13:28 VTE Orders Placed or Will Be Placed: Yes - Active Medicaitons Current Medications: Current Medications Hydrocodone Bitart/Acetaminophen ([place] 10mg/325mg) 1 each PO Q4H PRN PRN Reason: pain-moderate Last Admin: 10/17/16 09:59 Dose: 1 each Ciprofloxacin (Cipro) 500 mg PO Q12HR [facility] Last Admin: 10/17/16 09:59 Dose: 500 mg Enoxaparin Sodium (Lovenox) 40 mg SQ DAILY [facility] Last Admin: 10/17/16 09:59 Dose: 40 mg Sodium Chloride () 1,000 mls @ 125 mls/hr IV .Q8H PRN PRN Reason: LARGE VOLUME IV Last Admin: 10/17/16 02:12 Dose: 125 mls/hr Metronidazole/Sodium Chloride (Flagyl) 500 mg in 100 mls @ 100 mls/hr IVPB Q8H [facility] Stop: 10/20/16 12:01 Last Infusion: 10/17/16 04:58 Dose: Infused Morphine Sulfate (Morphine Sulfate) 5 mg IVP Q4HR PRN PRN Reason: Abdominal Pain Stop: 10/22/16 10:09 Last Admin: 10/17/16 03:29 Dose: 5 mg Non-Formulary Medication (Oral Contraceptive) 1 tab PO QHS [facility] Last Admin: 10/16/16 22:22 Dose: 1 tab Ondansetron HCl (Zofran) 4 mg IVP Q4H PRN PRN Reason: NAUSEA AMI Plan - Labs Result Diagrams: 10/17/16 08:46 10/17/16 08:46
[2016-10-17] MEDS ORDERED: POTASSIUM CHLORIDE 20 MEQ TABLET PO ONE (11:28)
[2016-10-17] MEDS: METRONIDAZOLE 250 MG TABLET PO SCH ×2 (13:38→22:39)
[2016-10-17] MEDS: CONTRACEPTIVE PO SCH (22:40)
[2016-10-18] MEDS: HYDROCODONE/APAP 10/325 TABLET PO PRN (01:31)
[2016-10-18] MEDS: METRONIDAZOLE 250 MG TABLET PO SCH (06:11)
[2016-10-18] MEDS: 0.9 % SODIUM CHLORIDE 1000ML 1,000 ML IV PRN (06:12)
--- NOTE | 2016-10-18 07:06 | Discharge Summary ---
Providers Discharge Summary Date: 10/18/16 Date of admission: 10/15/16 01:59 Expected Date of Discharge: 10/18/16 Attending physician: LILIYA PUCKETT Physical Exam - Vital Signs Vital Signs: Vital Signs - Last 24 Hrs Temp Pulse Pulse Resp BP BP Pulse Ox 10/18/16 06:09 97.9 F 72 16 108/70 96 10/17/16 22:42 98.0 F 86 16 118/83 98 10/17/16 20:13 18 10/17/16 15:00 98.2 F 83 18 104/72 98 10/17/16 09:00 100 H 16 10/17/16 07:10 98.1 F 100 H 16 105/75 96 - General General Appearance: Alert, Oriented x3, Cooperative, No acute distress - Head Head exam: Normal inspection - Eye Eye exam: Normal appearance, PERRL Pupils: Normal accommodation - ENT ENT exam: Normal exam, Mucous membranes moist, Normal external ear exam, Normal orophraynx, TM's normal bilaterally Ear exam: Normal external inspection. negative: External canal tenderness Nasal Exam: Normal inspection. negative: Discharge, Sinus tenderness Mouth exam: Normal external inspection, Tongue normal Teeth exam: Normal inspection. negative: Dental caries Throat exam: Normal inspection. negative: Tonsillar erythema, Tonsillar exudate - Neck Neck exam: Normal inspection, Full ROM. negative: Tenderness - Respiratory Respiratory exam: Normal lung sounds bilaterally. negative: Accessory muscle use, Respiratory distress - Cardiovascular Cardiovascular Exam: Normal rhythm, Normal heart sounds, Tachycardia - GI/Abdominal GI/Abdominal exam: Soft, Normal bowel sounds, Tenderness (tender over LLQ, and periumbilical region, ). negative: Distended, Rebound, Rigid - Rectal Rectal exam: Deferred - exam: Deferred - Extremities Extremities exam: Normal inspection, Full ROM, Normal capillary refill. negative: Calf tenderness, Pedal edema, Tenderness - Back Back exam: Reports: Normal inspection, Full ROM. Denies: CVA tenderness (R), CVA tenderness (L), Muscle spasm, Rash noted, Tenderness - Neurological Neurological exam: Alert, CN II-XII intact, Normal gait, Oriented X3, Reflexes normal - Psychiatric Psychiatric exam: Normal affect, Normal mood - Skin Skin exam: Dry, Intact, Normal color, Warm Hospitalization - Hospitalization Admission Diagnosis: Acute sigmoid diverticulitis - Problem List/Discharge Diagnosis (1) Sigmoid diverticulitis Current Visit: Yes Status: Acute Base Code: K57.32 - DVTRCLI OF LG INT W/O PERFORATION OR ABSCESS W/O BLEEDING Comment: 10/18/16- improved. CT scan showed a focal area of wall thickening, diverticular disease and adjacent inflammation. WBC remains normal at 5.8. tolerating full liquids and soft, bland solids. pain is well controlled with norco 10/325mg po q6H. -continue cipro 500mg po q12H and flagyl 500mg po q8H for 7 more days total of 10 day course -continue to advance diet as tolerating -continue zofran 4mg odt prn. has medication at home from previous Ed visit in July. -norco 10/325mg po q6H prn severe pain -Follow up wtih Dr. Ferrell at [facility] on 10/31/16 -[facility] will contact her to reschedule her Cscope which was scheduled for 10/24/16 (2) Full code status Current Visit: Yes Status: Acute Base Code: Z78.9 - OTHER SPECIFIED HEALTH STATUS Comment: 10/18/16- will remain full code during this hospitalization (3) DVT prophylaxis Current Visit: Yes Status: Acute Base Code: [id number] - Comment: 10/18/16- Lovenox 40mg QD - Hospitalization Course Disposition: Home, Self-Care Hospital Course: 35 y/o female with CC periumbilical pain admitted for diverticulitis. Past medical history includes diverticulitis, large right ovarian cyst. Prior to arrival had periumbilical pain beginning night. She rated pain about 5/10. Laid down and was able to sleep that night. The next morning woke with the same pain associated with a migraine, diarrhea and nausea. Denies fever or vomiting, bloody stools. Saturday late afternoon had dinner and had abrupt worsening of periumbilical pain. Pain was unlike any previous abdominal pain associated with diverticulitis. Had painful BM. Was treated for diverticulitis at [facility] July 2016 and took all antibiotics as ordered. Reports for the past 3 years has had 5-6 episodes of diverticulitis, has been following with [facility] with a colonoscopy scheduled next week. She is due to see surgeon after that scope for partial colectomy due to frequent diverticulitis. Does have known right ovarian cyst and is currently on day 4 of menses. Takes OBC. 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 While in the ED VSS but was slightly tachycardic. CBC normal with no elevation of WBC. CMP normal. U/A with small blood. CT abdomen/pelvis showed fat stranding in the bilateral paracolic gutters, Sigmoid and descending colonic diverticuli. Distal descending colon with wall thickening with adjacent fat stranding consistent with diverticulitis. Marked distention of stomach. Pain was significant, was not controlled with Dilaudid. Was given MS with Ativan with a little better control. Flagyl and Cipro IV, IV hydration initiated in the ED. Admitted for continued IV antibiotics and pain control 10/15/16- laying in bed, appears very uncomfortable. Abdominal guarding. Has only tolerated clear liquids. Poor appetite. No further diarrhea. Denies nausea or vomiting. 10/16/16-patient reports stable pain in the amanda-umbilical and lower abdomen. States the morphine and diluadid seem to be keeping pain tolerable at a 5. Says she still gets recurrence of the sharp pain when the pain medication is wearing off. Has been tolerating clear liquids but no real appetite. no nausea or vomiting. Had one BM saturday night before she came in to the ED that was loose but none since. currently on her menses. No fevers, chills, or worsening of pain 10/17/16- Patient states she is feeling much better today. she says the sharp intermittent pain she was having in the periumbilical and llq has changed in to more of a dull ache, similar to previous diverticulitis pain. She has been tolerating more clear liquids including juice without any nausea or worsening pain. no BM today. Denies fevers, chills, shortness of breath 10/18/16- Patient states she continues to improve. the dull ache in the left lower quadrant is less severe. the hydrocodone is doing a good job of managing her pain. Only woke up once last night. denies nausea/vomiting or BM but is passing gas. She has been tolerating full liquids and some soft, bland foods. She is feeling ready to go home GI: [facility] Abnormal Labs: Abnormal Lab Results 10/15/16 10/15/1617 Range/Units 06:57 06:57 09:59 WBC 19.0 H 19.1 H (4.2-12.2) K/uL RBC (3.80-5.40) M/uL Hgb (11.6-16.0) gm/dl Hct (35.0-47.0) % MPV 11.1 H 10.6 H (7.4-10.4) fl Neutrophils % 91.0 H (47-80) % Lymphocytes 4.0 L (16-45) % Sodium 135 L (136-145) mmol/L Potassium (3.5-5.1) mmol/L Anion Gap (7-16) BUN (7-17) mg/dL Random Glucose 120 H (70-110) mg/dL Calcium 8.0 L (8.5-10.1) mg/dL AST (14-36) U/L Total Protein (6.3-8.2) gm/dL Albumin (3.5-5.0) gm/dL Albumin/Globulin Ratio (1.1-1.8) 10/15/16 10/16/16 10/16/16 Range/Units 09:59 08:12 08:12 WBC 13.4 H (4.2-12.2) K/uL RBC (3.80-5.40) M/uL Hgb 11.5 L (11.6-16.0) gm/dl Hct 33.5 L (35.0-47.0) % MPV 10.5 H (7.4-10.4) fl Neutrophils % 92.0 H (47-80) % Lymphocytes 5.0 L (16-45) % Sodium 134 L 135 L (136-145) mmol/L Potassium (3.5-5.1) mmol/L Anion Gap 4.9 L 5.9 L (7-16) BUN 6 L (7-17) mg/dL Random Glucose 117 H (70-110) mg/dL Calcium 7.7 L 7.9 L (8.5-10.1) mg/dL AST (14-36) U/L Total Protein 5.6 L 5.8 L (6.3-8.2) gm/dL Albumin 3.1 L 3.0 L (3.5-5.0) gm/dL Albumin/Globulin Ratio (1.1-1.8) 10/17/16 10/17/16 Range/Units 08:46 08:46 WBC (4.2-12.2) K/uL RBC 3.67 L (3.80-5.40) M/uL Hgb 10.9 L (11.6-16.0) gm/dl Hct 32.0 L (35.0-47.0) % MPV (7.4-10.4) fl Neutrophils % 90.0 H (47-80) % Lymphocytes 5.0 L (16-45) % Sodium 134 L (136-145) mmol/L Potassium 3.2 L (3.5-5.1) mmol/L Anion Gap 4.2 L (7-16) BUN 4 L (7-17) mg/dL Random Glucose (70-110) mg/dL Calcium 7.8 L (8.5-10.1) mg/dL AST 12 L (14-36) U/L Total Protein 5.8 L (6.3-8.2) gm/dL Albumin 2.8 L (3.5-5.0) gm/dL Albumin/Globulin Ratio 0.9 L (1.1-1.8) Condition at Discharge: (2) Stable Discharge Medications - Discharge Medications Prescriptions: Ciprofloxacin HCl [Cipro] 500 mg PO Q12HR #14 tab Hydrocodone/Acetaminophen [Hydrocodon-Acetaminophn 10-325] 1 each PO Q6H PRN # 15 tablet PRN Reason: Pain - Severe (8-10) Metronidazole 500 mg PO Q8H #21 tablet Home Medications: Ambulatory Orders Oral Contraceptive 1 tab PO DAILY 10/14/16 [Last Taken Unknown] Ciprofloxacin HCl [Cipro] 500 mg PO Q12HR #14 tab 10/18/16 [Last Taken Unknown] Hydrocodone/Acetaminophen [Hydrocodon-Acetaminophn 10-325] 1 each PO Q6H PRN # 15 tablet 10/18/16 [Last Taken Unknown] Metronidazole 500 mg PO Q8H #21 tablet 10/18/16 [Last Taken Unknown] Discharge Plan - Discharge Instructions Activity at Discharge: Resume Usual Activities As Tolerated Diet at Discharge: Advance to Usual Diet Instructions: Ciprofloxacin (By mouth), Hydrocodone/Acetaminophen (By mouth), Metronidazole (By mouth), Diverticulitis (GEN), Diverticulosis Diet (GEN) Additional Instructions: Follow up next Saturday at the [facility] to establish care with Dr. Ferrell Continue to advance diet as tolerating Continue Cipro 500mg by mouth every 12 hours for 7 days Continue flagyl 500mg by mouth every 8 hours for 7 days. Do not consume alcohol while taking the medication and for up to 48 hours after last dose. Return to ED if any new or worsening symptoms Please call with any questions or concerns [facility] WILL CONTACT YOU TO RESCHEDULE SCOPE
[2016-10-18 07:34] LABS: BASO % 0.2 % (0-6); EOS % 3.5 % (0-6); HEMATOCRIT 31.8 % (35.0-47.0); HEMOGLOBIN 10.8 gm/dl (11.6-16.0); LYMPH % 14.7 % (16-45); MEAN CELL VOLUME 87.6 fl (81-97); MEAN PLATELET VOLUME 10.4 fl (7.4-10.4); MONO % 8.6 % (0-9); PLATELET COUNT 188 K/uL (130-400); RED BLOOD COUNT 3.63 M/uL (3.80-5.40); RED CELL DISTRIBUTION WIDTH 12.5 % (11.5-14.5); WHITE BLOOD COUNT W/O DIFF 5.8 K/uL (4.2-12.2)
[2016-10-18 07:35] LABS: MEAN CORPUSCULAR HEMOGLOBIN 29.7 pg (27-33)
[2016-10-18 07:41] LABS: ALB/GLOB RATIO 1.1 (1.1-1.8); ALBUMIN 2.9 gm/dL (3.5-5.0); ALKALINE PHOSPHATASE 47 U/L (38-126); ALT/SGPT 37 U/L (9-52); ANION GAP 6.6 (7-16); AST/SGOT 12 U/L (14-36); BILIRUBIN,TOTAL 0.48 mg/dL (0.2-1.3); BLOOD UREA NITROGEN 4 mg/dL (7-17); CARBON DIOXIDE 24.4 mmol/L (22-30); CREATININE 0.6 mg/dL (0.52-1.04); EST GLOMERULAR FILTRATION RATE > 60 ml/min; GLUCOSE,RANDOM 99 mg/dL (70-110); TOTAL PROTEIN 5.6 gm/dL (6.3-8.2)
[2016-10-18] MEDS: CIPROFLOXACIN HCL 500 MG TABLET PO SCH (09:19)
[2016-10-18] MEDS: ENOXAPARIN 40 MG/0.4 ML SYR SQ SCH (10:25)
== END 2016-10-18 10:30 | disposition home or self-care (01) | DRG 392 ==
LOC: ER 21:46 → MEDSURG 10-15 01:59
PROVIDERS: ADMIT Family Medicine; ATTEND Family Medicine
DX: K57.32 Diverticulitis of large intestine without perforation or abscess without bleeding (principal); N83.201 Unspecified ovarian cyst, right side; Z78.9 Other specified health status
CPT/HCPCS: 74177; 80048; 80053; 80076; 81001; 81025; 83690; 85025; 85027; 96365; 96375; 99223; 99232; 99239; 99285; J1170; J1650; J2405; J7030